=== PATIENT | female | born 1935 | race Caucasian/White ===

== ENCOUNTER 2020-12-21 15:22 | Observation (INO) ==
[2020-12-21 16:55] LABS: ABS Eosinophils 0.1 10^3/ul (0-0.6); ABS Lymphocytes 0.9 10^3/ul (1.0-4.8); ABS Monocytes 0.6 10^3/ul (0-0.8); ABS Neutrophils 3.4 10^3/ul (1.5-7.7); Hematocrit 43 % (35-47); Hemoglobin 14.9 g/dL (12.0-16.0); Lymphocyte % 18.1 %; Mean Corpuscular HGB Conc 35 g/dL (31-36); Mean Corpuscular Hemoglobin 31 pg (27-31); Mean Corpuscular Volume 91 fL (80-97); Mean Platelet Volume 7.4 fL (7.4-10.4); Nucleated Red Blood Cells % 0.1; Platelet Count 164 10^3/uL (150-450); Red Blood Count 4.75 10^6 /uL (3.70-4.87); Red Cell Distribution Width 14 % (10-15); White Blood Count 4.9 10^3/uL (3.5-10.8)
[2020-12-21 17:14] LABS: ALT 15 U/L (7-52); AST 24 U/L (13-39); Albumin/Globulin Ratio 1.4 (1-3); Alkaline Phosphatase 51 U/L (35-149); Anion Gap 10 mmol/L (2-11); Blood Urea Nitrogen 11 mg/dL (6-24); CO2 Carbon Dioxide 25 mmol/L (22-32); Calcium 9.4 mg/dL (8.6-10.3); Chloride 96 mmol/L (101-111); EGFR African American 64.7 (>60); EGFR Non-African American 53.4 (>60); Globulin 2.8 g/dL (2-4); Glucose 123 mg/dL (70-100); Sodium 131 mmol/L (135-145); Total Protein 6.8 g/dL (6.4-8.9)
[2020-12-21 17:17] LABS: Troponin I 0.03 ng/mL (<0.03)
[2020-12-21 17:35] LABS: TSH Ultra Thyroid Stim Horm 3.92 mcIU/mL (0.34-5.60)
[2020-12-21 17:40] LABS: Free T4 0.93 ng/dL (0.61-1.12)
[2020-12-21] MEDS ORDERED: Iodixanol (CONTRAST) 320 MG/ML 100 ML SDV IV ONE (17:59)
[2020-12-21] MEDS ORDERED: Heparin DRIP 25,000 UNITS BAG 25,000 UNITS/500 ML BAG IV SCH (18:15)
[2020-12-21] MEDS ORDERED: Heparin 5000 UNITS/ML 1 mL VIAL IV SCH (19:00)
[2020-12-21 19:29] LABS: Activated Partial Thrombo Time 28.3 seconds (26.0-38.0)
[2020-12-21 22:50] LABS: Troponin I 0.05 ng/mL (<0.03)
[2020-12-22 02:26] LABS: Troponin I 0.04 ng/mL (<0.03)
[2020-12-22 06:44] LABS: Anion Gap 8 mmol/L (2-11); Blood Urea Nitrogen 9 mg/dL (6-24); CO2 Carbon Dioxide 24 mmol/L (22-32); Calcium 9.3 mg/dL (8.6-10.3); Chloride 99 mmol/L (101-111); EGFR African American 77.1 (>60); EGFR Non-African American 63.7 (>60); Glucose 127 mg/dL (70-100); Sodium 131 mmol/L (135-145)
[2020-12-22 06:53] LABS: Troponin I 0.04 ng/mL (<0.03)
[2020-12-22 06:56] LABS: ABS Basophils 0.1 10^3/ul (0-0.2); ABS Eosinophils 0.1 10^3/ul (0-0.6); ABS Lymphocytes 1.7 10^3/ul (1.0-4.8); ABS Monocytes 0.7 10^3/ul (0-0.8); ABS Neutrophils 3.3 10^3/ul (1.5-7.7); Eosinophil % 2.2 %; Hematocrit 44 % (35-47); Hemoglobin 14.8 g/dL (12.0-16.0); Lymphocyte % 28.6 %; Mean Corpuscular HGB Conc 34 g/dL (31-36); Mean Corpuscular Hemoglobin 31 pg (27-31); Mean Corpuscular Volume 91 fL (80-97); Nucleated Red Blood Cells % 0.1; Platelet Count 174 10^3/uL (150-450); Red Blood Count 4.82 10^6 /uL (3.70-4.87); Red Cell Distribution Width 14 % (10-15); White Blood Count 5.8 10^3/uL (3.5-10.8)
[2020-12-22] MEDS ORDERED: Aspirin EC 81 mg TAB.EC (enteric coated) PO SCH (09:00)
[2020-12-22 16:42] VITALS: BP 134/80
== END 2020-12-22 16:59 | disposition home or self-care (01) ==
LOC: ED 15:22 → MEDTELE 15:22
PROVIDERS: ADMIT Internal Medicine; ATTEND Hospitalist

== ENCOUNTER 2024-03-09 13:29 | Inpatient (IN) ==
[2024-03-09 14:16] LABS: ABS Lymphocytes 0.5 10^3/uL (1.0-4.8); ABS Monocytes 0.6 10^3/uL (0.0-0.9); ABS Neutrophils 5.4 10^3/uL (1.5-7.6); ABS Nucleated RBC 0.01 10^3/ul; Eosinophil % 0.5 %; Hematocrit 41.4 % (35-45); Hemoglobin 14.2 g/dL (11.5-14.3); Lymphocyte % 7.8 %; Mean Corpuscular Hgb Conc 34.4 g/dL (31-36); Mean Corpuscular Volume 90.1 fL (80-97); Nucleated Red Blood Cells % 0.1 %/100WBC (0.0-0.8); Platelet Count 247 10^3/uL (150-450); Red Blood Count 4.59 10^6/uL (3.63-4.92); Red Cell Distribution Width 13.5 % (12-17); White Blood Count 6.6 10^3/uL (3.8-11.8)
[2024-03-09 14:28] LABS: High Sens Troponin Baseline 27 pg/mL (<15)
[2024-03-09 14:32] LABS: PCO2 Arterial 32 mmHg (35-45); PO2 Arterial 86 mmHg (80-100)
[2024-03-09 15:15] LABS: ALT 15 U/L (7-52); Albumin 4.6 g/dL (3.2-5.2); Albumin/Globulin Ratio 1.5 (1-3); Alkaline Phosphatase 41 U/L (35-149); Anion Gap 8 mmol/L (2-16); Blood Urea Nitrogen 16 mg/dL (6-24); CO2 Carbon Dioxide 27 mmol/L (22-32); Calcium 9.2 mg/dL (8.6-10.3); Chloride 88 mmol/L (101-111); Creatinine, Serum 0.97 mg/dL (0.51-0.95); Free T4 0.86 ng/dL (0.61-1.12); Globulin 3.1 g/dL (2-4); Glucose 153 mg/dL (70-100); Sodium 123 mmol/L (135-145); TSH Ultra Thyroid Stim Horm 23.27 mcIU/mL (0.34-5.60); Total Bilirubin 0.7 mg/dL (0.2-1.0); Total Protein 7.7 g/dL (6.4-8.9); eGFR CKD-EPI 56.6 (>60)
[2024-03-09 15:34] LABS: High Sensitivity Troponin 1 Hr 17 pg/mL (<15)
[2024-03-09 17:07] LABS: Potassium Redraw 3.4 mmol/L (3.5-5.0)
[2024-03-10 06:03] LABS: Hematocrit 38.7 % (35-45); Hemoglobin 12.9 g/dL (11.5-14.3); Mean Corpuscular Hemoglobin 29.5 pg (27-33); Mean Corpuscular Hgb Conc 33.4 g/dL (31-36); Mean Corpuscular Volume 88.5 fL (80-97); Mean Platelet Volume 7.3 fL (7.5-11.2); Platelet Count 243 10^3/uL (150-450); Red Blood Count 4.37 10^6/uL (3.63-4.92); Red Cell Distribution Width 13.4 % (12-17); White Blood Count 6.6 10^3/uL (3.8-11.8)
[2024-03-10 06:23] LABS: Calcium 8.6 mg/dL (8.6-10.3); Creatinine, Serum 0.71 mg/dL (0.51-0.95); Potassium 3.4 mmol/L (3.5-5.0); eGFR CKD-EPI 82.2 (>60)
[2024-03-10 07:22] LABS: Erythrocyte Sed Rate 8 mm/Hr (0-29)
[2024-03-10] MEDS: KCL 20 MEQ/100 ML IVPREMIX 20 MEQ/100 ML BAG IV ONE (09:09)
[2024-03-10 12:49] LABS: Osmolality Serum 265 mOsm/kg (275-295)
[2024-03-10 15:57] LABS: Urine Appearance Clear; Urine Bilirubin Negative (Negative); Urine Blood Negative (Negative); Urine Color Yellow; Urine Glucose Negative (Negative); Urine Ketones 1+ (Negative); Urine Nitrite Negative (Negative); Urine Protein Trace (Negative); Urine Specific Gravity 1.018 (1.002-1.030); Urine Urobilinogen Negative (Negative)
[2024-03-10] MEDS: NS 0.9% 1000 ml BAG 1,000 ML IV ONE (15:59)
[2024-03-10 16:15] LABS: Urine Creatinine Concentration 107.99 mg/dL (20.00-320.00)
[2024-03-10 16:55] LABS: Urine Osmo 618 mOsm/kg (150-1150)
[2024-03-10 18:45] LABS: Anion Gap 9 mmol/L (2-16); Blood Urea Nitrogen 13 mg/dL (6-24); CO2 Carbon Dioxide 26 mmol/L (22-32); Calcium 8.9 mg/dL (8.6-10.3); Chloride 90 mmol/L (101-111); Creatinine, Serum 0.67 mg/dL (0.51-0.95); Glucose 125 mg/dL (70-100); Sodium 125 mmol/L (135-145); eGFR CKD-EPI 84.5 (>60)
[2024-03-11 05:57] LABS: Urine Potassium Concentration 39.3 mmol/L
[2024-03-11 06:55] LABS: Albumin 3.7 g/dL (3.2-5.2); Albumin/Globulin Ratio 1.7 (1-3); Calcium 8.4 mg/dL (8.6-10.3); Creatinine, Serum 0.79 mg/dL (0.51-0.95); Globulin 2.2 g/dL (2-4); Magnesium 1.7 mg/dL (1.9-2.7); Potassium 3.8 mmol/L (3.5-5.0); Total Bilirubin 0.9 mg/dL (0.2-1.0); Total Protein 5.9 g/dL (6.4-8.9); eGFR CKD-EPI 72.4 (>60)
[2024-03-11 07:30] LABS: ABS Lymphocytes 0.9 10^3/uL (1.0-4.8); ABS Monocytes 0.9 10^3/uL (0.0-0.9); ABS Neutrophils 4.8 10^3/uL (1.5-7.6); ABS Nucleated RBC 0.01 10^3/ul; Eosinophil % 0.4 %; Hemoglobin 13.4 g/dL (11.5-14.3); Lymphocyte % 13.4 %; Mean Corpuscular Hemoglobin 30.4 pg (27-33); Mean Corpuscular Hgb Conc 34.5 g/dL (31-36); Mean Corpuscular Volume 88.3 fL (80-97); Mean Platelet Volume 7.5 fL (7.5-11.2); Nucleated Red Blood Cells % 0.1 %/100WBC (0.0-0.8); Platelet Count 235 10^3/uL (150-450); Red Blood Count 4.41 10^6/uL (3.63-4.92); Red Cell Distribution Width 13.5 % (12-17); White Blood Count 6.6 10^3/uL (3.8-11.8)
[2024-03-11] MEDS: Magnesium Sulfate 2 gm BAG 2 GM/50 ML BAG IVPB ONE (09:44)
[2024-03-12 05:19] LABS: ABS Basophils 0.1 10^3/uL (0.0-0.1); ABS Eosinophils 0.1 10^3/uL (0.0-0.5); ABS Neutrophils 4.8 10^3/uL (1.5-7.6); Eosinophil % 0.7 %; Hematocrit 39.3 % (35-45); Hemoglobin 13.3 g/dL (11.5-14.3); Lymphocyte % 14.5 %; Mean Corpuscular Hemoglobin 30.1 pg (27-33); Mean Corpuscular Hgb Conc 33.9 g/dL (31-36); Mean Corpuscular Volume 88.8 fL (80-97); Mean Platelet Volume 7.4 fL (7.5-11.2); Platelet Count 236 10^3/uL (150-450); Red Blood Count 4.43 10^6/uL (3.63-4.92); Red Cell Distribution Width 13.3 % (12-17); White Blood Count 6.9 10^3/uL (3.8-11.8)
[2024-03-12 05:38] LABS: Calcium 8.5 mg/dL (8.6-10.3); Creatinine, Serum 0.8 mg/dL (0.51-0.95); Magnesium 1.9 mg/dL (1.9-2.7); Potassium 3.7 mmol/L (3.5-5.0); eGFR CKD-EPI 71.3 (>60)
[2024-03-12] MEDS: Senna TAB 8.6 mg TAB PO PRN (21:58)
[2024-03-13 06:39] LABS: ABS Basophils 0.1 10^3/uL (0.0-0.1); ABS Eosinophils 0.1 10^3/uL (0.0-0.5); ABS Lymphocytes 1.1 10^3/uL (1.0-4.8); ABS Neutrophils 3.7 10^3/uL (1.5-7.6); ABS Nucleated RBC 0.01 10^3/ul; Eosinophil % 1.4 %; Hematocrit 39.1 % (35-45); Hemoglobin 13.4 g/dL (11.5-14.3); Lymphocyte % 18.6 %; Mean Corpuscular Hemoglobin 30.6 pg (27-33); Mean Corpuscular Hgb Conc 34.3 g/dL (31-36); Mean Corpuscular Volume 89.1 fL (80-97); Mean Platelet Volume 7.1 fL (7.5-11.2); Nucleated Red Blood Cells % 0.1 %/100WBC (0.0-0.8); Platelet Count 215 10^3/uL (150-450); Red Blood Count 4.39 10^6/uL (3.63-4.92); Red Cell Distribution Width 13.6 % (12-17); White Blood Count 5.9 10^3/uL (3.8-11.8)
[2024-03-13 07:16] LABS: Calcium 8.5 mg/dL (8.6-10.3); Creatinine, Serum 0.8 mg/dL (0.51-0.95); Magnesium 1.8 mg/dL (1.9-2.7); Potassium 3.8 mmol/L (3.5-5.0); eGFR CKD-EPI 71.3 (>60)
[2024-03-13 08:10] LABS: Rapid COVID-19 Molecular Undetected (Undetected)
[2024-03-13] MEDS: Magnesium Sulfate 2 gm BAG 2 GM/50 ML BAG IVPB ONE (09:08)
[2024-03-13 10:17] VITALS: BP 120/63
== END 2024-03-13 11:17 | DRG 71 ==
LOC: ED 13:29 → EDHOLD 13:29 → SUATTDRO 16:29 → MEDTELE 21:30 → SUATTDRO 03-10 15:47
PROVIDERS: ADMIT Internal Medicine; ATTEND Internal Medicine